=== PATIENT | female | born 1985 | race Caucasian/White ===

== ENCOUNTER 2019-09-08 10:16 | Outpatient (CLI) | payer OTHER | END 2019-09-08 11:20 | disposition home or self-care (01) | LOC: LC 10:16 | PROVIDERS: ATTEND Obstetrics & Gynecology | PROC: 4A1HXCZ Monitoring of Products of Conception, Cardiac Rate, External Approach (ICD-10-PCS; principal; 2019-09-08) | DX: O30.003 Twin pregnancy, unspecified number of placenta and unspecified number of amniotic sacs, third trimester (principal); Z3A.32 32 weeks gestation of pregnancy | CPT/HCPCS: 59025 ==

== ENCOUNTER 2019-09-30 14:18 | Outpatient (CLI) | payer OTHER ==
[2019-09-30 14:54] LABS: APPEARANCE,URINE CLEAR; BILIRUBIN,URINE NEGATIVE (NEGATIVE); COLOR,URINE YELLOW; GLUCOSE, URINE NEGATIVE (NEGATIVE); KETONES,URINE NEGATIVE (NEGATIVE); LEUKOCYTE ESTERASE,URINE NEGATIVE (NEGATIVE); NITRITE,URINE NEGATIVE (NEGATIVE); PROTEIN,URINE 100 mg/dL (NEGATIVE)
[2019-09-30 15:10] LABS: HEMATOCRIT 31.7 % (36.0-47.0); HEMOGLOBIN 10.6 g/dL (12.0-15.5); MEAN CORPUSCULAR HEMOGLOBIN 27.1 pg (27.0-33.4); MEAN CORPUSCULAR HGB CONC 33.4 g/dL (32.0-36.0); MEAN CORPUSCULAR VOLUME 81 fl (80-97); PLATELET COUNT 218 10^3/uL (150-450); RED CELL DISTRIBUTION WIDTH 13.7 % (11.5-14.0); WHITE BLOOD COUNT 5.5 10^3/uL (4.0-10.5)
[2019-09-30 15:14] LABS: UR PRO/CREAT RATIO RESULT 0.5 mg/mg (0.0-0.2); URINE CREATININE 147.6 mg/dL (16-327); URINE PROTEIN 73.3 mg/dL (<12)
[2019-09-30 15:17] LABS: URINE AMPHETAMINES SCREEN NEGATIVE; URINE BARBITURATES SCREEN NEGATIVE; URINE BENZODIAZEPINES SCREEN NEGATIVE; URINE COCAINE SCREEN NEGATIVE; URINE MARIJUANA (THC) SCREEN NEGATIVE; URINE METHADONE SCREEN NEGATIVE; URINE PHENCYCLIDINE SCREEN NEGATIVE
[2019-09-30 15:30] LABS: ALBUMIN 3.2 g/dL (3.5-5.0); ALKALINE PHOSPHATASE 314 U/L (38-126); ANION GAP 9 (5-19); ASPARTATE AMINO TRANSFERASE 40 U/L (14-36); BILIRUBIN,DIRECT 0.2 mg/dL (0.0-0.4); BILIRUBIN,TOTAL 0.4 mg/dL (0.2-1.3); BLOOD UREA NITROGEN 12 mg/dL (7-20); CALCIUM 8.9 mg/dL (8.4-10.2); CARBON DIOXIDE 22 mmol/L (22-30); CHLORIDE 104 mmol/L (98-107); GLUCOSE 82 mg/dL (75-110); POTASSIUM 4.4 mmol/L (3.6-5.0); TOTAL PROTEIN 6.2 g/dL (6.3-8.2); URIC ACID 6.4 mg/dL (2.5-6.2)
--- NOTE | 2019-09-30 15:46 | Non Stress Test Report ---
Non Stress Test Datetime Report Generated by CPN: 09/30/2019 15:46 DEMOGRAPHIC EGA NST: 36.0 INDICATION Indication for Study (NST) Other: PRE=E W/U Indication for Study (NST) Other: repeat twins from wha VITAL SIGNS Temperature - NST: 98.3 Temperature - NST: 98.1 Pulse - NST: 77 Pulse - NST: 88 RESP - NST: 18 RESP - NST: 15 NBPSYS NST: 121 NBPSYS NST: 121 NBPDIA NST: 64 NBPDIA NST: 74 MONITORING Monitor Explained: Monitor Explained; Test Explained; Patient Verbalized Understanding Monitor Explained: Monitor Explained; Test Explained; Patient Verbalized Understanding Time on Monitor: 09/30/2019 14:36 Time on Monitor: 09/08/2019 10:33 Time off Monitor: 09/30/2019 15:30 Time off Monitor: 09/08/2019 11:09 NST Duration: 54 NST Duration: 36 NST INTERVENTIONS NST Interventions: PO Hydration; Reposition Patient NST Interventions: None Physician Notified NST: Ana Seth, CNM Physician Notified NST: ana seth cnerika BABY A: [id number] BABY A Movement : Present Movement : Present Contraction Frequency : IRRITABILITY Contraction Frequency : irritability FHR Baseline : 135 FHR Baseline : 145 Accelerations : 15X15 Accelerations : 15X15 Decelerations : None Decelerations : None Variability : Moderate 6-25bpm Variability : Moderate 6-25bpm NST Review: Meets Criteria for Reactive NST NST Review: Meets Criteria for Reactive NST NST Review and Verified By : Soledad BLACKMON NST Review and Verified By : Silvio FLORES Results: Reactive NST Results: Reactive BABY B Movement: Present Movement: Present FHR Baseline: 145 FHR Baseline: 150 Accelerations: 15X15 Accelerations: 15X15 Decelerations: None Decelerations: None Variability: Moderate 6-25bpm Variability: Moderate 6-25bpm NST Review: Meets Criteria for Reactive NST NST Review: Meets Criteria for Reactive NST NST Reviewed And Verified By: Soledad Castorena RNC NST Reviewed And Verified By: SAutry NST Results: Reactive NST Results: Reactive NST COMMENTS NST Comments: provider reviewed strip NST Comments: CNM on unit reviewing NSTs NST REPORT Report Trigger: Send Report
== END 2019-09-30 15:44 | disposition home or self-care (01) ==
LOC: LC 14:18
PROVIDERS: ATTEND Obstetrics & Gynecology Gynecology
DX: O13.3 Gestational [pregnancy-induced] hypertension without significant proteinuria, third trimester (principal); Z3A.36 36 weeks gestation of pregnancy
CPT/HCPCS: 36415; 59025; 80053; 80307; 81001; 82570; 84156; 84550; 85027

== ENCOUNTER 2019-10-01 15:56 | Outpatient (CLI) | payer OTHER ==
[2019-10-01] MEDS ORDERED: BETAMET ACET/BETAMET NA INJ 6 MG/1 ML ONE (16:31)
[2019-10-01] MEDS ORDERED: BETAMET ACET/BETAMET NA INJ 6 MG/1 ML IM ONE (16:38)
[2019-10-01 17:18] LABS: URINE PROTEIN 62.5 mg/dL (<12)
[2019-10-01 17:19] LABS: 24 HOUR URINE PROTEIN RESULT 625 mg/day (42-225)
== END 2019-10-01 16:50 | disposition home or self-care (01) ==
LOC: LC 15:56
PROVIDERS: ATTEND Obstetrics & Gynecology
PROC: 4A1HXCZ Monitoring of Products of Conception, Cardiac Rate, External Approach (ICD-10-PCS; principal; 2019-10-01)
DX: O30.043 Twin pregnancy, dichorionic/diamniotic, third trimester (principal); O16.3 Unspecified maternal hypertension, third trimester; Z3A.36 36 weeks gestation of pregnancy
CPT/HCPCS: 59025; 96372; 84156; 87081; J0702

== ENCOUNTER 2019-10-02 07:57 | Inpatient (IN) | payer OTHER ==
[2019-10-02] MEDS ORDERED: RINGERS SOLUTION,LACTATED 1,000 ML IV ONE (08:03)
[2019-10-02] MEDS ORDERED: PENICILLIN G POTASSIUM 5,000,000 UNIT in DEXTROSE 5%-WATER 100 ML IV ONE (08:03)
[2019-10-02] MEDS ORDERED: OXYTOCIN/NORMAL SALINE 20 UNIT/1,000 ML RTUINJ ONE (08:08)
[2019-10-02] MEDS ORDERED: MISOPROSTOL 0.2 MG TABLET ONE (08:08)
[2019-10-02] MEDS ORDERED: LIDOCAINE 1% INJ-PF (10 MG/ML) 30 ML SDV ONE (08:08)
[2019-10-02] MEDS ORDERED: OXYTOCIN 10 UNIT/ML VIAL ONE (08:08)
[2019-10-02] MEDS ORDERED: BETAMET ACET/BETAMET NA INJ 6 MG/1 ML IM ONE (08:19)
[2019-10-02 08:43] LABS: ABSOLUTE LYMPHOCYTES (AUTO) 1.6 10^3/uL (0.5-4.7); ABSOLUTE MONOCYTES (AUTO) 0.2 10^3/uL (0.1-1.4); ABSOLUTE NEUT (AUTO) 5.8 10^3/uL (1.7-8.2); BASOPHILS % (AUTO) 0.5 % (0-2); HEMATOCRIT 34.1 % (36.0-47.0); HEMOGLOBIN 11.4 g/dL (12.0-15.5); LYMPHOCYTES % (AUTO) 20.7 % (13-45); MEAN CORPUSCULAR HGB CONC 33.6 g/dL (32.0-36.0); MEAN CORPUSCULAR VOLUME 81 fl (80-97); MONOCYTES % (AUTO) 2.7 % (3-13); PLATELET COUNT 267 10^3/uL (150-450); RED BLOOD COUNT 4.23 10^6/uL (3.72-5.28); RED CELL DISTRIBUTION WIDTH 13.8 % (11.5-14.0); SEGMENTED NEUTROPHILS % (AUTO) 76.1 % (42-78); TOTAL CELLS COUNTED % (AUTO) 100 %; WHITE BLOOD COUNT 7.7 10^3/uL (4.0-10.5)
[2019-10-02 08:45] LABS: APPEARANCE,URINE CLOUDY; BILIRUBIN,URINE NEGATIVE (NEGATIVE); COLOR,URINE YELLOW; GLUCOSE, URINE NEGATIVE (NEGATIVE); KETONES,URINE 20 mg/dL (NEGATIVE); LEUKOCYTE ESTERASE,URINE TRACE (NEGATIVE); NITRITE,URINE NEGATIVE (NEGATIVE); PROTEIN,URINE 100 mg/dL (NEGATIVE); UROBILINOGEN,URINE NEGATIVE mg/dL (<2.0)
[2019-10-02] MEDS ORDERED: BETAMET ACET/BETAMET NA INJ 6 MG/1 ML ONE (09:00)
[2019-10-02] MEDS ORDERED: PENICILLIN G-K 5 MILLION UNIT VIAL ONE (09:00)
[2019-10-02 09:05] LABS: ALBUMIN 3.5 g/dL (3.5-5.0); ALKALINE PHOSPHATASE 340 U/L (38-126); ANION GAP 10 (5-19); ASPARTATE AMINO TRANSFERASE 38 U/L (14-36); BILIRUBIN,TOTAL 0.4 mg/dL (0.2-1.3); BLOOD UREA NITROGEN 13 mg/dL (7-20); CALCIUM 9.6 mg/dL (8.4-10.2); CARBON DIOXIDE 18 mmol/L (22-30); CHLORIDE 107 mmol/L (98-107); GLUCOSE 132 mg/dL (75-110); POTASSIUM 4.3 mmol/L (3.6-5.0); TOTAL PROTEIN 6.5 g/dL (6.3-8.2)
[2019-10-02 09:10] LABS: URINE AMPHETAMINES SCREEN NEGATIVE; URINE BARBITURATES SCREEN NEGATIVE; URINE BENZODIAZEPINES SCREEN NEGATIVE; URINE COCAINE SCREEN NEGATIVE; URINE MARIJUANA (THC) SCREEN NEGATIVE; URINE METHADONE SCREEN NEGATIVE; URINE PHENCYCLIDINE SCREEN NEGATIVE
[2019-10-02 09:28] LABS: UR PRO/CREAT RATIO RESULT 0.6 mg/mg (0.0-0.2); URINE PROTEIN 101.4 mg/dL (<12)
[2019-10-02] MEDS ORDERED: CITRIC ACID/SODIUM CITRATE ORAL SOLN 15 ML UDCUP PO ONE (09:34)
[2019-10-02] MEDS ORDERED: CITRIC ACID/SODIUM CITRATE ORAL SOLN 15 ML UDCUP ONE (10:20)
[2019-10-02] MEDS: RINGERS SOLUTION,LACTATED 1,000 ML IV PRN ×2 (10:55→16:20)
[2019-10-02] MEDS ORDERED: OXYTOCIN/NORMAL SALINE 20 UNIT/1,000 ML RTUINJ IV PRN (10:59)
--- NOTE | 2019-10-02 12:36 | Warning Signs in Babies ---
VOD Warning Signs Datetime Report Generated by [facility]: 10/02/2019 12:36 VOD#608 -Warning Signs in Babies: Viewed with Parent(s)/Family (10/02/2019 12:22:Tiburcio Carlton RN)
[2019-10-02] MEDS: PENICILLIN G POTASSIUM 2,500,000 UNIT in DEXTROSE 5%-WATER 50 ML IV SCH ×3 (13:08→20:55)
[2019-10-02] MEDS ORDERED: LIDOCAINE 2% INJ-PF (20 MG/ML) 10 ML AMPUL ONE (14:36)
--- NOTE | 2019-10-02 16:59 | Admission Physical ---
Datetime Report Generated by CPN: 10/02/2019 16:58 CURRENT ADMISSION Chief Complaint: Scheduled Induction of Labor; Other Chief Complaint Other: PreE Indication for Induction: PreEclampsia Admit Impression : Term, Intrauterine ; No Active Labor; Intact Membranes; Induction of Labor Admit Plan: Admit to Unit; Initiate Labor Induction Protocol ALLERGIES Medication Allergies: No Medication Allergies: No Known Allergies (10/02/2019) Latex: No Latex Allergies Food Allergies: None Environmental Allergies: None OBSTETRICAL HISTORY EDC: 10/28/2019 00:00 : 2 Para: 1 Term: 1 Ectopic: 0 Livin Cesareans: 0 Gestational Diabetes: No Rh Sensitization: No Incompetent Cervix: No DEBBIE: No Infertility: No ART Treatment: No Uterine Anomaly: No IUGR: No Hx Previous C/S: No Macrosomia: No Hx Loss/Stillborn: No PIH: Yes Hx : No Placenta Previa/Abruption: No Depression/PP Depression: No PTL/PROM: No Post Hemorrhage: No Current Procedures: Ultrasound; NST Obstetrical History Comments: 2014 G2- Twins, Surrogate SEE RECORDS Alcohol: No Marijuana : No Cocaine: No Other Illicit Drugs: No Cigarettes: Never Smoker. [id number] MEDICAL HISTORY Diabetes: No Blood Transfusion: No Pulmonary Disease (Asthma, TB): No Breast Disease: No Hypertension: Yes Personal Chef Surgery: No Heart Disease: No Hosp/Surgery: Yes Autoimmune Disorder: No Anesthetic Complications: No Kidney Disease: No Abnormal Pap Smear: Yes Neuro/Epilepsy: No Psychiatric Disorders: No Other Medical Diseases: No Hepatitis/Liver Disease: No Significant Family History: No Varicosities/Phlebitis: No Trauma/Violence : No Thyroid Dysfunction: No Medical History Comments: PIH, Childbirth and Lypoma removed, mild dysplasia INFECTIOUS HISTORY Gonorrhea: No Genital Herpes: No Chlamydia: Yes Tuberculosis: No Syphilis: No Hepatitis: No HIV/AIDS Exposure: No Rash or Viral Illness: No HPV: No Infectious History Comments: Chlamydia as teenager PHYSICAL EXAM General: Normal HEENT: Normal Neurologic: Normal Thyroid: Deferred Heart: Normal Lungs: Normal Breast: Deferred Back: Normal Abdomen: Normal Genitourinary Exam: Normal Extremities: Normal DTRs: Normal Pelvic Type: Adequate Physical Exam Comments: Pelvis proven to 6#14oz Vital Signs: Reviewed VAGINAL EXAM Dilatation: 2 Effacement: 50 Station: -3 Contraction Comments: [employer] [employer] Membranes: Intact FETUS A EGA: 36.2 Monitoring: External US FHR- Baseline: 125 Variability: Moderate 6-25bpm Accelerations: 15X15 Decelerations: None FHR Category: Category I Estimated Weight (gm): 2661 Presentation: Vertex Admit Comment: 34yo at 36+2ega with PreE and DC/DA TIUP. [facility] recommended low threshold for delivery with elevated BPs then 24 hr UTP 625mg. US on admission vtx/vtx presentation. R/B/A to vaginal delivery with TIUP reviewed and the patient desires to proceed with vaginal delivery. She is aware that 2nd baby may have to be turned if turned from vertex after baby B delivers. R/B/A reviewed. Prior baby was 6#14oz. GBS unknown - done on 09/30 at [facility]. Plan PCN for GBS prophy. Weights done at [facility] on 09/29. She had mild range BPs there and 150s/90s in office yesterday on 09/30. Denies JOHNSON/blurry vision/RUQ pain. BMZ given o 09/30 and then repeated today. Admit and anticipate . Begin pitocin 2 hours after PCN given. FETUS B Monitoring: External US Variability: Moderate 6-25bpm Accelerations: 15X15 Decelerations: None FHR Category: Category I Estimated Weight (gm): 2651 Presentation: Vertex PLANS FOR LABOR AND DELIVERY Labor and Delivery: None Pain Management: Natural Feeding Preference: N/A Circumcision: N/A INFORMED CONSENT Informed Consent Obtained: Vaginal Delivery; Induction of Labor; Risks, Benefits and Alternatives Discussed Signature: with User ID: [email or web address]
[2019-10-02] MEDS ORDERED: EPHEDRINE SULFATE INJ 50 MG/1 ML AMPULE ONE (23:58)
[2019-10-02] MEDS ORDERED: FENTANYL/BUPIVACAINE/NS/PF 300 MCG/150 ML RTUINJ EPI ONE (23:59)
[2019-10-02] MEDS ORDERED: BUPIVACAINE HCL 0.25 % INJ/PF (2.5 MG/1 ML) 30 ML VIAL ONE (23:59)
[2019-10-03] MEDS ORDERED: MAG HYDROX/AL HYDROX/SIMETH SUSP 30 ML UDCUP ONE (01:07)
[2019-10-03] MEDS ORDERED: OXYTOCIN/NORMAL SALINE 20 UNIT/1,000 ML RTUINJ ONE (04:23)
[2019-10-03] MEDS ORDERED: MEASLES,MUMPS&RUBELLA VACC/PF 0.5 ML VIAL SUBCUT PRN ×2 (05:08→15:30)
[2019-10-03] MEDS ORDERED: ZOLPIDEM TARTRATE 5 MG TABLET PO PRN (05:08)
[2019-10-03] MEDS ORDERED: BENZOCAINE/MENTHOL AEROSOL SPRAY 56 ML TOP PRN (05:08)
[2019-10-03] MEDS ORDERED: MISOPROSTOL 0.2 MG TABLET PR PRN (05:08)
[2019-10-03] MEDS ORDERED: ACETAMINOPHEN WITH CODEINE #3 TABLET PO PRN ×2 (05:08)
[2019-10-03] MEDS ORDERED: DIBUCAINE 1% OINTMENT 28 GM TP PRN (05:08)
[2019-10-03] MEDS ORDERED: OXYTOCIN/NORMAL SALINE 20 UNIT/1,000 ML RTUINJ IV PRN (05:08)
[2019-10-03] MEDS ORDERED: DIPH/PERTUSS(ACELL)/TETANUS VAC/PF 0.5 ML SYR (>=10YO) IM PRN ×2 (05:08→15:30)
[2019-10-03] MEDS ORDERED: PROMETHAZINE HCL 25 MG TABLET PO PRN (05:10)
[2019-10-03] MEDS ORDERED: ACETAMINOPHEN 325 MG TABLET PO PRN (05:10)
[2019-10-03] MEDS ORDERED: NA PHOS,M-B/NA PHOS,DI-BA (ADULT) 133 ML ENEMA PR PRN (05:10)
[2019-10-03] MEDS ORDERED: MAGNESIUM HYDROXIDE SUSP 30 ML UDCUP PO PRN (05:10)
[2019-10-03] MEDS ORDERED: PSEUDOEPHEDRINE HCL 30 MG TABLET PO PRN (05:10)
[2019-10-03] MEDS ORDERED: DIPHENHYDRAMINE HCL 25 MG CAPSULE PO PRN (05:10)
[2019-10-03] MEDS ORDERED: PROMETHAZINE HCL 25 MG SUPP.RECT PR PRN (05:10)
[2019-10-03] MEDS ORDERED: GLYCERIN/WITCH HAZEL LEAF 1 EACH MED..WIPE TP PRN (05:10)
[2019-10-03] MEDS ORDERED: PROMETHAZINE HCL INJ 25 MG/1 ML VIAL IV PRN ×2 (05:10→15:30)
[2019-10-03] MEDS ORDERED: IBUPROFEN 800 MG TABLET ONE (05:58)
--- NOTE | 2019-10-03 06:08 | Delivery Summary ---
Del Sum A-C Datetime Report Generated by CPN: 10/03/2019 06:07 DELIVERY PERSONNEL DELIVERY PERSONNEL: [id number] Delivery Doctor:: Yoselin Riggs MD Anesthesiologist:: Travis Acuna MD PLATER HOT DIP:: Jorge Jamison CRNA Labor and Delivery Nurse:: Kimberly Townsend RNmessenger floorperson Nurse:: LORRI Braun Nurse Practitioner:: MUKUND Jarvis Nursery Nurse:: Massiel Rodriguez RN Nursery Nurse:: Adin Garcia RN Painter Ordnance/WASH OPERATOR: ST Jenn Painter Ordnance/WASH OPERATOR: ST Christina Additional Personnel: : Mariela Gamboa RN MATERNAL INFORMATION Delivery Anesthesia: Epidural Medications After Delivery: Pitocin Bolus-Please Comment; Pitocin Drip 20 Units/1000ml NSS; Cytotec 1000mcg Per Rectum/Vagina Meds After Delivery Comment: pitocin 20 units/1000ml NS bolus Estimated Blood Loss (ml): 200 Maternal Complications: None Provider Comments: At AL/C/+2 for baby A patient was taken to the Operating Room. She pushed and delivered VFI in MINESH presentation with tight nuchal cord that avulsed just prior to delivery of baby A and clamp placed immediately on the baby side of the cord. Spontaneous cry and to warmer with APPRENTICE JOCKEY. At that time evaluation for presentation of baby B noted to be vertex and cvx 9/c/-3. Patient pushed and AROM performed to bring Baby B head to position. FHR stable with mild variables with pushing. Pushing became ineffective due to patients discomfort. Baby was ROP at this time. After 2 hours of pushing patient was encouraged to get an epidural. Baby B was doing well and Anesthesia aware of patient decision. She was taken back to her Labor and Delivery room and epidural obtained. Baby rotated to ROT. Then she felt the urge to push and pushed until baby rotated to MANINDER and delivered VFI in MANINDER presentation with compound right hand. Shoulders and body delivered without difficulty. Cord doubly clamped and cut and to warmer. Placentas delivered intact spontaneously. FF at U and cytotec 1000mcg per rectum placed. Good hemostasis. Patient stable upon provider leaving the room LABOR SUMMARY EDC: 10/28/2019 00:00 No. Babies in Womb: 2 Attempted: No Labor Anesthesia: Epidural LABOR INFORMATION Reason for Induction: Pre-Eclampsia Onset of Labor: 10/02/2019 18:01 Complete Dilatation: 10/02/2019 21:45 Cervical Ripening Agents: Hernandez Balloon Other Ripening Agents: Pitocin Oxytocin: Induction Group B Beta Strep: Unkown Antibiotics # of Doses: 4 Antibiotics Time of Last Dose: 2054 Name of Antibiotic Given: PCN Steroids Given: Full Course; < 24 Hours before Delivery Reason Steroids Not Administered: Not Applicable MEMBRANES Membranes Rupture Method: Artificial Rupture of Membranes: 10/02/2019 18:01 Length of Rupture (hr): 3.80 Amniotic Fluid Color: Clear Amniotic Fluid Amount: Small Amniotic Fluid Odor: Normal STAGES OF LABOR Stage 1 hr: 3 Stage 1 min: 44 Stage 2 hr: 0 Stage 2 min: 4 Stage 3 hr: 6 Stage 3 min: 51 Total Time in Labor hr: 10 Total Time in Labor min: 39 VAGINAL DELIVERY Episiotomy: None Laceration #1: Perineal Laceration Extension #1: First Degree Laceration Repair: Yes Laceration Repair Note: 1st degree perineal laceration repaired in usual fashion Sponge Count Correct: Yes Sharps Count Correct: Yes CSECTION DELIVERY Primary Indication: N/A Secondary Indication: N/A CSection Incidence: N/A Labor: N/A Elective: N/A CSection Incision: N/A BABY A INFORMATION Infant Delivery Date/Time: 10/02/2019 21:49 Method of Delivery: Vaginal Nurse Controlled Delivery: No Born in Route : No : N/A Forceps: N/A Vacuum Extraction: N/A Shoulder Dystocia : No PRESENTATION/POSITION BABY A Presentation: Cephalic Cephalic Presentation: Vertex Vertex Position: Left Occipital Anterior Breech Presentation: N/A PLACENTA INFORMATION BABY A Placenta Delivery Time : 10/03/2019 04:40 Placenta Method of Delivery: Spontaneous Placenta Status: Delivered SCORES BABY A Heart Rate 1 min: >100 bpm Resp Effort 1 min: Good Cry Reflex Irritability 1 min: Cough or Sneeze or Pulls Away Muscle Tone 1 min: Active Motion Color 1 min: Blue/Pale Resuscitation Effort 1 min: Tactile Stimulation SCORE 1 MIN: 8 Heart Rate 5 min: >100 bpm Resp Effort 5 min: Good Cry Reflex Irritability 5 min: Cough or Sneeze or Pulls Away Muscle Tone 5 min: Active Motion Color 5 min: Body [place], Extremities Blue SCORE 5 MIN: 9 INFORMATION BABY A Gestational Age at Delivery: 36.2 Gestational Status: Late - 34- 36.6 Weeks Outcome : Liveborn Infant Condition : Stable Sex: Female IDENTIFICATION BABY A Verification Date/Time: 10/03/2019 00:49 ID Band Number: [id number] Mother's Name Verified: Yes Infant RN Verifying : LisaJoselitoKYLE Dobson Additional Verifying Personnel: US Alexei/ANDRÉS Acuna WEIGHT/LENGTH BABY A Birthweight (gm): 2702 Infant Weight (lb): 5 Weight (oz): 15 Infant Length (in): 18.75 Infant Length (cm): 47.63 CORD INFORMATION BABY A No. Cord Vessels: 3 Nuchal Cord : Around Neck x1, Tight Cord Blood Taken: Yes-For Storage (Mom's Blood type +) Infant Suction: Mouth; Nose BABY B INFORMATION Infant Delivery Date/Time: 10/03/2019 04:30 Method of Delivery : Vaginal Nurse Controlled Delivery: No Born in Route : No : N/A Forceps : N/A Vacuum Extraction: N/A Shoulder Dystocia : No SHOULDER DYSTOCIA BABY B Delivery Date/Time: 10/03/2019 04:30 PRESENTATION/POSITION BABY B Presentation : Cephalic Cephalic Position : Vertex Vertex Position: Right Occipital Anterior Breech Position: N/A ROM/PLACENTA INFO BABY B Rupture of Membranes: 10/02/2019 21:55 Length of Rupture (hr): 6.58 Placenta Delivery Time : 10/03/2019 04:41 Placenta Method of Delivery: Spontaneous Placental Status : Delivered SCORES BABY B Heart Rate 1 min: >100 bpm Resp Effort 1 min: Good Cry Reflex Irritability 1 min: Cough or Sneeze or Pulls Away Muscle Tone 1 min: Active Motion Color 1 min: Body [place], Extremities Blue Resuscitation Effort 1 min: Tactile Stimulation SCORE 1 MIN: 9 Heart Rate 5 min: >100 bpm Resp Effort 5 min: Good Cry Reflex Irritability 5 min: Cough or Sneeze or Pulls Away Muscle Tone 5 min: Active Motion Color 5 min: Body [place], Extremities Blue Resuscitation Effort 5 min: Tactile Stimulation SCORE 5 MIN: 9 INFANT INFORMATION BABY B Gestational Age at Delivery: 36.2 Gestational Status : Late - 34- 36.6 Weeks Outcome : Liveborn Infant Condition : Stable Infant Sex : Female IDENTIFICATION BABY B Verification Date/Time: 10/03/2019 04:50 ID Band Number : [id number] Mother's Name Verified: Yes Infant RN Verifying Infant: , RN and D.Hany, RN WEIGHT/LENGTH BABY B Birthweight (gm): 2665 Infant Weight (lb) : 5 Weight (oz): 14 Infant Length (in): 18.75 Length (cm): 47.63 CORD INFORMATION BABY B No. Cord Vessels : 3 Nuchal Cord : Around Neck x1, Loose Nuchal Cord- Other: compound hand Cord Blood Taken : Yes-For Storage (Mom's Blood Type +) Infant Suction : None SIGNATURES Signature: Electronically signed by Yoselin Riggs MD ([facility]) on 10/03/2019 at 05:37 with User ID: [email or web address]
[2019-10-03] MEDS ORDERED: TRANEXAMIC ACID INJ/PF 1,000 MG/10 ML SDV ONE (06:27)
[2019-10-03] MEDS ORDERED: TRANEXAMIC ACID INJ/PF 1,000 MG/10 ML SDV IV SCH (06:30)
[2019-10-03] MEDS ORDERED: PIPERACILLIN/TAZOBACTAM 3.375 GM VIAL IV SCH (06:30)
[2019-10-03] MEDS: IBUPROFEN 800 MG TABLET PO SCH ×3 (06:34→22:05)
[2019-10-03] MEDS: RINGERS SOLUTION,LACTATED 1,000 ML IV PRN ×2 (09:41→20:34)
[2019-10-03] MEDS: PIPERACILLIN SODIUM/TAZOBACTAM 3.375 GM in NORMAL SALINE 100 ML IV SCH ×3 (09:47→20:34)
[2019-10-03] MEDS: PRENATAL VITAMIN W DHA CAPSULE PO SCH (09:47)
[2019-10-03] MEDS: DOCUSATE SODIUM 100 MG CAPSULE PO SCH ×2 (09:47→17:38)
[2019-10-03] MEDS: SENNOSIDES/DOCUSATE 8.6-50 MG 1 EACH TABLET PO SCH (09:47)
[2019-10-03] MEDS: FAMOTIDINE 20 MG TABLET PO SCH ×3 (09:47→22:12)
[2019-10-03] MEDS: FERROUS SULFATE 325 MG TABLET PO SCH ×2 (09:47→17:38)
[2019-10-04] MEDS: PIPERACILLIN SODIUM/TAZOBACTAM 3.375 GM in NORMAL SALINE 100 ML IV SCH ×2 (02:04→09:33)
[2019-10-04] MEDS: IBUPROFEN 800 MG TABLET PO SCH (06:02)
[2019-10-04] MEDS: RINGERS SOLUTION,LACTATED 1,000 ML IV PRN (06:11)
[2019-10-04 07:36] VITALS: BP 128/76
[2019-10-04 07:37] LABS: HEMATOCRIT 25.1 % (36.0-47.0); MEAN CORPUSCULAR HGB CONC 33.3 g/dL (32.0-36.0); MEAN CORPUSCULAR VOLUME 81 fl (80-97); PLATELET COUNT 126 10^3/uL (150-450); RED BLOOD COUNT 3.09 10^6/uL (3.72-5.28); WHITE BLOOD COUNT 11.7 10^3/uL (4.0-10.5)
[2019-10-04 07:38] LABS: HEMOGLOBIN 8.4 g/dL (12.0-15.5)
[2019-10-04] MEDS: FERROUS SULFATE 325 MG TABLET PO SCH (09:33)
[2019-10-04] MEDS: PRENATAL VITAMIN W DHA CAPSULE PO SCH (09:33)
[2019-10-04] MEDS: DOCUSATE SODIUM 100 MG CAPSULE PO SCH (09:33)
[2019-10-04] MEDS: SENNOSIDES/DOCUSATE 8.6-50 MG 1 EACH TABLET PO SCH (09:33)
[2019-10-04] MEDS: FAMOTIDINE 20 MG TABLET PO SCH (09:34)
--- NOTE | 2019-10-04 10:14 | PDOC PROGRESS REPORT ---
Subjective-OB Progress Note for:: 10/04/19 Subjective: Doing well, no c/o, ready to be discharged, briceno remains in place Physical Exam (OB) Vital Signs: Temp Pulse Resp BP Pulse Ox 97.3 F 61 16 128/76 H 99 10/04/19 07:19 10/04/19 07:19 10/04/19 07:19 10/04/19 07:19 10/04/19 07:19 Intake & Output 10/03/19 10/04/19 10/05/19 06:59 06:59 06:59 Intake Total 1677 2400 Output Total 2950 Balance 1677 -550 Weight 84.7 kg - PIH/Pre-Eclampsia Clonus: Negative Headache: Absent Epigastric Pain: No Visual Changes: No - Lochia Lochia Amount: Small 10-25 ml Lochia Color: Rubra/Red - Abdomen Description: Soft Hernia Present: No Fundal Description: Firm, Midline Fundal Height: u/u - u/2 Objective-Diagnostic Laboratory: 10/04/19 06:44 10/02/19 08:26 10/04/19 06:44 WBC 11.7 H RBC 3.09 L Hgb 8.4 L D Hct 25.1 L MCV 81 MCH 27.0 MCHC 33.3 RDW 14.0 Plt Count 126 L Assessment and Plan(PN) - Assessment and Plan (1) Dichorionic diamniotic twin Qualifiers: Trimester: first trimester Qualified Code(s): O30.041 - Twin , dichorionic/diamniotic, first trimester Is this a current diagnosis for this admission?: Yes (2) Obstetrical laceration, first degree Is this a current diagnosis for this admission?: Yes (3) Pre-eclampsia Qualifiers: Trimester: third trimester Qualified Code(s): O14.93 - Unspecified pre- eclampsia, third trimester Is this a current diagnosis for this admission?: Yes (4) in person acting as gestational surrogate Is this a current diagnosis for this admission?: Yes (5) Twin , delivered vaginally, current hospitalization Is this a current diagnosis for this admission?: Yes - Time Spent with Patient Time with patient: Less than 15 minutes Medications reviewed and adjusted accordingly: Yes - Disposition Within: within 24 hours - discussed with Dr. Holloway POC, stop antibiotics and remove briceno and when she has voided can be d/c home
--- NOTE | 2019-10-04 10:20 | PDOC DISCHARGE SUMMARY ---
Impression - Admit/DC Date/PCP Admission Date/Primary Care Provider: 10/02/19 08:03 Discharge Date: 10/04/19 - Discharge Diagnosis (1) Dichorionic diamniotic twin Is this a current diagnosis for this admission?: Yes (2) Obstetrical laceration, first degree Is this a current diagnosis for this admission?: Yes (3) Pre-eclampsia Is this a current diagnosis for this admission?: Yes (4) in person acting as gestational surrogate Is this a current diagnosis for this admission?: Yes (5) Twin , delivered vaginally, current hospitalization Is this a current diagnosis for this admission?: Yes - Additional Information Discharge Diet: As Tolerated, Regular Discharge Activity: Activity As Tolerated, Pelvic Rest Referrals: GUCCI RÍOS MD [ACTIVE STAFF] - Home Medications: 105/Iron/Folic AC/Dha [Vitatrue Combo Pack] 1 each PO DAILY 09/08/19 HPI Gestational Age: 36.2 Reason(s) for Admission: Induction of Labor, Obstetric Complications Admission Note: Pre-eclampsia, GBS unknown Procedures: NST, Ultrasound Intrapartum Procedure(s): Spontaneous Vaginal Delivery Complication(s): Laceration-Perineal Laceration-Degree: 1st Hospital Course Hospital Course: routine Results Laboratory Results: WBC 11.7 10^3/uL (4.0-10.5) H 10/04/19 06:44 RBC 3.09 10^6/uL (3.72-5.28) L 10/04/19 06:44 Hgb 8.4 g/dL (12.0-15.5) L D 10/04/19 06:44 Hct 25.1 % (36.0-47.0) L 10/04/19 06:44 MCV 81 fl (80-97) 10/04/19 06:44 MCH 27.0 pg (27.0-33.4) 10/04/19 06:44 MCHC 33.3 g/dL (32.0-36.0) 10/04/19 06:44 RDW 14.0 % (11.5-14.0) 10/04/19 06:44 Plt Count 126 10^3/uL (150-450) L 10/04/19 06:44 Lymph % (Auto) 20.7 % (13-45) 10/02/19 08:26 [place] % (Auto) 2.7 % (3-13) L 10/02/19 08:26 Eos % (Auto) 0.0 % (0-6) 10/02/19 08:26 Baso % (Auto) 0.5 % (0-2) 10/02/19 08:26 Absolute Neuts (auto) 5.8 10^3/uL (1.7-8.2) 10/02/19 08:26 Absolute Lymphs (auto) 1.6 10^3/uL (0.5-4.7) 10/02/19 08:26 Absolute Monos (auto) 0.2 10^3/uL (0.1-1.4) 10/02/19 08: Absolute Eos (auto) 0.0 10^3/uL (0.0-0.6) 10/02/19 08: Absolute Basos (auto) 0.0 10^3/uL (0.0-0.2) 10/02/19 08:26 Seg Neutrophils % 76.1 % (42-78) 10/02/19 08:26 Sodium 134.9 mmol/L (137-145) L 10/02/19 08:26 Potassium 4.3 mmol/L (3.6-5.0) 10/02/19 08:26 Chloride 107 mmol/L (98-107) 10/02/19 08:26 Carbon Dioxide 18 mmol/L (22-30) L 10/02/19 08:26 Anion Gap 10 (5-19) 10/02/19 08:26 BUN 13 mg/dL (7-20) 10/02/19 08:26 Creatinine 0.97 mg/dL (0.52-1.25) 10/02/19 08:26 Est GFR ( Amer) > 60 (>60) 10/02/19 08:26 Est GFR (MDRD) Non-Af > 60 (>60) 10/02/19 08:26 Glucose 132 mg/dL (75-110) H 10/02/19 08:26 Uric Acid 7.0 mg/dL (2.5-6.2) H 10/02/19 08:26 Calcium 9.6 mg/dL (8.4-10.2) 10/02/19 08:26 Total Bilirubin 0.4 mg/dL (0.2-1.3) 10/02/19 08:26 Direct Bilirubin 0.0 mg/dL (0.0-0.4) 10/02/19 08:26 Neonat Total Bilirubin Not Reportable 10/02/19 08:26 Neonat Direct Bilirubin Not Reportable 10/02/19 08:26 Neonat Indirect Bili Not Reportable 10/02/19 08:26 AST 38 U/L (14-36) H 10/02/19 08:26 ALT 25 U/L (<35) 10/02/19 08:26 Alkaline Phosphatase 340 U/L (38-126) H 10/02/19 08:26 Lactate Dehydrogenase 192 U/L (120-246) 10/02/19 08:26 Total Protein 6.5 g/dL (6.3-8.2) 10/02/19 08:26 Albumin 3.5 g/dL (3.5-5.0) 10/02/19 08:26 Urine Color YELLOW 10/02/19 08:15 Urine Appearance CLOUDY 10/02/19 08:15 Urine pH 5.0 (5.0-9.0) 10/02/19 08:15 Ur Specific [place] 1.020 10/02/19 08:15 Urine Protein 100 mg/dL (NEGATIVE) H 10/02/19 08:15 Urine Glucose (UA) NEGATIVE mg/dL (NEGATIVE) 10/02/19 08:15 Urine Ketones 20 mg/dL (NEGATIVE) H 10/02/19 08:15 Urine Blood SMALL (NEGATIVE) H 10/02/19 08:15 Urine Nitrite NEGATIVE (NEGATIVE) 10/02/19 08:15 Urine Bilirubin NEGATIVE (NEGATIVE) 10/02/19 08:15 Urine Urobilinogen NEGATIVE mg/dL (<2.0) 10/02/19 08:15 Ur Leukocyte Esterase TRACE (NEGATIVE) H 10/02/19 08:15 Urine WBC (Auto) 7 /HPF 10/02/19 08:15 Urine RBC (Auto) 3 /HPF 10/02/19 08:15 U Hyaline Cast (Auto) 1 /LPF 10/02/19 08:15 Urine Bacteria (Auto) 1+ /HPF 10/02/19 08:15 Squamous Epi Cells Auto 2 /HPF 10/02/19 08:15 Urine Mucus (Auto) FEW /LPF 10/02/19 08:15 Urine Creatinine 176.0 mg/dL (16-327) 10/02/19 08:15 Protein/Creatinin Ratio 0.6 mg/mg (0.0-0.2) H 10/02/19 08:15 Urine Total Protein 101.4 mg/dL (<12) H 10/02/19 08:15 Urine Ascorbic Acid NEGATIVE (NEGATIVE) 10/02/19 08:15 Urine Opiates Screen NEGATIVE 10/02/19 08:15 Urine Methadone Screen NEGATIVE 10/02/19 08:15 Ur Barbiturates Screen NEGATIVE 10/02/19 08:15 Ur Phencyclidine Scrn NEGATIVE 10/02/19 08:15 Ur Amphetamines Screen NEGATIVE 10/02/19 08:15 U Benzodiazepines Scrn NEGATIVE 10/02/19 08:15 Urine Cocaine Screen NEGATIVE 10/02/19 08:15 U Marijuana (THC) Screen NEGATIVE 10/02/19 08:15 RPR NONREACTIVE (NONREACTIVE) 10/02/19 08:26 Blood Type A POSITIVE 10/02/19 08:26 Antibody Screen NEGATIVE 10/02/19 08:26 Plan Health Concerns: BP Plan of Treatment: d/c home, rev S&S to report Goals: no complications Time Spent: Less than 30 Minutes
== END 2019-10-04 12:40 | disposition home or self-care (01) | DRG 807 ==
LOC: LC 07:57 → LR 08:03 → 2S 10-03 06:23 → LR 10-03 06:27 → 2S 10-03 08:41
PROVIDERS: ADMIT Student in an Organized Health Care Education/Training Program; ATTEND Student in an Organized Health Care Education/Training Program
PROC: 10E0XZZ Delivery of Products of Conception, External Approach (ICD-10-PCS; principal; 2019-10-02)
PROC: 0HQ9XZZ Repair Perineum Skin, External Approach (ICD-10-PCS; 2019-10-02)
PROC: 10907ZC Drainage of Amniotic Fluid, Therapeutic from Products of Conception, Via Natural or Artificial Opening (ICD-10-PCS; 2019-10-02)
DX: O14.94 Unspecified pre-eclampsia, complicating childbirth (principal); Z37.2 Twins, both liveborn; O30.043 Twin pregnancy, dichorionic/diamniotic, third trimester; O69.1XX1 Labor and delivery complicated by cord around neck, with compression, fetus 1; O70.0 First degree perineal laceration during delivery; O32.6XX2 Maternal care for compound presentation, fetus 2; Z3A.36 36 weeks gestation of pregnancy; Z86.19 Personal history of other infectious and parasitic diseases
CPT/HCPCS: 36415; 80053; 80307; 81001; 82570; 83615; 84156; 84550; 85025; 85027; 86592; 86850; 86900; 86901; 88307; 94760; 96372; C1726; J0702; J2540; J2543; J2590; J3010; J3490; J7050; J7060; J7120